=== PATIENT | male | born 1950 | race Caucasian/White ===

== ENCOUNTER 2019-06-03 00:41 | Outpatient (CLI) | payer MEDICARE, SELFPAY ==
--- NOTE | 2019-06-03 06:46 | DI.US_ITS ---
EXAM: US AAA SCREENING CLINICAL HISTORY: Z13.6,SCREENING FOR AAA. TECHNIQUE: Ultrasound performed using standard protocol. COMPARISON: No priors for comparison FINDINGS: There is no evidence of an abdominal aortic aneurysm. Maximum diameter of the abdominal aorta is see n proximally and is 2.7 cm. IMPRESSION: No evidence of an abdominal aortic aneurysm.
[2019-06-03 08:36] LABS: Anion Gap 7.6 mmol/L (3-11); BUN 12 mg/dL (7-18); CO2 30.4 mmol/L (21.0-32.0); CREATININE 1.14 mg/dL (0.70-1.30); Calcium 9.2 mg/dL (8.5-10.1); Calculated LDL 52 mg/dL; Chloride 104 mmol/L (98-107); Cholesterol 116 mg/dL (50-200); Glucose 89 mg/dL (70-100); HDL Cholesterol 48 mg/dL (40-60); Potassium 4.4 mmol/L (3.5-5.1); Sodium 142 mmol/L (136-145); Triglyceride 80 mg/dL (30-150)
== END 2019-06-03 01:01 ==
PROVIDERS: PCP Family Medicine; Visit Provider Family Medicine
DX: Z13.6 Encounter for screening for cardiovascular disorders (principal); I21.19 ST elevation (STEMI) myocardial infarction involving other coronary artery of inferior wall
CPT/HCPCS: 36415; 76706; 80048; 80061

== ENCOUNTER 2020-06-08 15:36 | Outpatient (CLI) | payer MEDICARE, SELFPAY ==
[2020-06-08 16:37] LABS: Anion Gap 6.2 mmol/L (3-11); BUN 17 mg/dL (7-18); CO2 30.8 mmol/L (21.0-32.0); CREATININE 1.08 mg/dL (0.70-1.30); Calcium 8.9 mg/dL (8.5-10.1); Calculated LDL 7 mg/dL (<100); Chloride 103 mmol/L (98-107); Cholesterol 119 mg/dL (<200); Glucose 97 mg/dL (74-106); HDL Cholesterol 44 mg/dL (40-60); Potassium 4.5 mmol/L (3.5-5.1); Sodium 140 mmol/L (136-145); Triglyceride 342 mg/dL (<150)
[2020-06-08 21:31] LABS: PSA, Screening 2.4 ng/mL (0.0-4.5)
== END 2020-06-08 15:56 ==
PROVIDERS: Family Medicine
DX: I10 Essential (primary) hypertension (principal); E78.5 Hyperlipidemia, unspecified; Z12.5 Encounter for screening for malignant neoplasm of prostate
CPT/HCPCS: 36415; 80048; 80061; 84153

== ENCOUNTER 2020-06-18 02:57 | Outpatient (CLI) | payer MEDICARE, SELFPAY ==
[2020-06-18 09:04] LABS: Triglyceride 139 mg/dL (<150)
== END 2020-06-18 03:17 ==
DX: E78.5 Hyperlipidemia, unspecified (principal)
CPT/HCPCS: 36415; 84478

== ENCOUNTER 2020-07-28 03:12 | Outpatient (CLI) | payer MEDICARE, SELFPAY ==
[2020-07-28 11:47] LABS: Calculated LDL 35 mg/dL (<100); Cholesterol 103 mg/dL (<200); HDL Cholesterol 56 mg/dL (40-60); Triglyceride 63 mg/dL (<150)
== END 2020-07-28 03:32 ==
PROVIDERS: Visit Provider Internal Medicine Cardiovascular Disease
DX: I25.10 Atherosclerotic heart disease of native coronary artery without angina pectoris (principal)
CPT/HCPCS: 36415; 80061